=== PATIENT | female | born 1980 | race Caucasian/White ===

== ENCOUNTER 2021-03-21 15:24 | Inpatient (IN) | payer OTHER ==
[~2021-03-21] VITALS: Ht 170.2 cm; Wt 72.7 kg
[2021-03-21 18:07] LABS: BASOPHILS ABSOLUTE AUTO 0.06 K/mm3 (0.00-0.23); BASOPHILS PERCENT AUTO 0 % (0-2); EOSINOPHILS PERCENT AUTO 0 % (0-6); Hematocrit 34.9 % (33.0-51.0); Hemoglobin 11.3 g/dL (11.5-16.0); IMMATURE GRAN ABSOLUTE AUTO 0.16 K/mm3 (0.00-0.10); IMMATURE GRAN PERCENT AUTO 1 % (0-1); LYMPHOCYTES ABSOLUTE AUTO 0.76 K/mm3 (0.84-5.20); LYMPHOCYTES PERCENT AUTO 4 % (21-46); MONOCYTES ABSOLUTE AUTO 1.01 K/mm3 (0.16-1.47); MONOCYTES PERCENT AUTO 5 % (4-13); Mean Corpuscular HGB Conc 32.4 g/dL (31.5-36.5); Mean Corpuscular Volume 84 fL (80-100); Mean Platelet Volume 10.8 fL (9.1-12.4); NEUTROPHILS ABSOLUTE AUTO 19.68 K/mm3 (1.96-9.15); NEUTROPHILS PERCENT AUTO 91 % (41-73); Platelet Count 266 K/mm3 (150-400); RDW Coefficient Variation 12.9 % (11.7-14.2); Red Blood Cell Count 4.18 M/mm3 (3.80-5.20); White Blood Cell Count 21.67 K/mm3 (4.00-11.30)
[2021-03-21 18:26] LABS: Alanine Aminotransfer (ALT/SGP 21 U/L (12-78); Albumin, Blood 2.7 g/dL (3.4-5.0); Albumin/Globulin Ratio 0.6 (0.8-1.8); Alk Phos 181 U/L (50-136); Anion Gap 15 mmol/L (6-16); Aspartate Aminotrans (AST/SGOT 19 U/L (12-37); Blood Urea Nitrogen 6 mg/dL (8-24); Bun/Creatinine Ratio 10.5 (12.0-20.0); CO2, Blood 14 mmol/L (21-32); Calcium, Blood 8.6 mg/dL (8.5-10.1); Chloride, Blood 106 mmol/L (98-108); Creatinine, Blood 0.57 mg/dL (0.40-1.00); Globulin, Blood 4.9 g/dL (2.2-4.0); Glomerular Filtration Rate >60 (60-); Glucose, Blood 97 mg/dL (70-99); Potassium, Blood 3.5 mmol/L (3.5-5.5); Sodium, Blood 135 mmol/L (136-145); Total Protein, Blood 7.6 g/dL (6.4-8.2)
[2021-03-21 21:05] LABS: SARS-Cov-2 (COVID-19) PCR, MMC NEGATIVE (NEGATIVE)
[2021-03-21 22:24] LABS: U Amphetamine Screen Not Detected; U Barbituate Screen Not Detected; U Benzodiazapine Screen Not Detected; U Buprenorphine Screen Not Detected; U Cannabinoids Screen Not Detected; U Cocaine Screen Not Detected; U Methadone Screen Not Detected; U Methamphetamine Screen Not Detected; U Opiates Screen Not Detected; U Oxycodone Screen Not Detected; U Phencyclidine Screen Not Detected; U Propoxyphene Screen Not Detected
--- NOTE | 2021-03-22 12:36 | NUR ---
SPOKE WITH PT ABOUT ANY QUESTIONS OR CONCERNS SHE HAD WHICH WERE NONE AT THIS TIME. SHE REPORTED THAT SHE STOPPED TAKING BC AROUND JULY BECAUSE HER S.O. IS ASEXUAL AND THEY DO NOT HAVE SEX VERY OFTEN. SHE ALSO REPORTED THAT DURING QUARANTINE (THE BEGINNING OF HER ) SHE WAS DRINKING HEAVILY AND HAS DRANK A FEW TIMES THROUGHOUT THE BECAUSE SHE DID NOT KNOW SHE WAS . OFFERED TO TAKE THE BABY TO THE NURSERY SO SHE CAN REST AND SHE DECLINED. SHE SAID SHE WANTED TO KEEP BABY IN THE ROOM SO SHE CAN GET USED TO TAKING CARE OF HIM. SHE REPORTS HER AND HER S.O. ARE CERTAIN THEY WANT TO KEEP THE BABY AND NOT ADOPTION. SHE SAID SHE FEELS THAT THE SHOCK SHE FELT IS STARTING TO CALM DOWN AND THE SITUATION IS "SINKING IN."
[2021-03-23 08:09] LABS: HBSAG SCREEN Negative (Negative)
[2021-03-23] MEDS ORDERED: IBUP800 PO (08:39)
[2021-03-23] MEDS ORDERED: PRENATAL TABLE1 EAC2 PO (08:39)
--- NOTE | 2021-03-23 08:58 | NUR ---
C.O.RGaurang. REFERRAL CALLED TO CHECK IN TO SEE IF PT NEEDED ANYTHING PRIOR TO D/C. PT REPORTS THEIR CONTACT FOR A CARSEAT IS FALLING THROUGH AND THAT SEEMS TO BE THEIR ONLY NEED AT THIS TIME. C.O.R.Brian. INFORMED AND THEY ARE WORKING ON ASSISTING THEM.
--- NOTE | 2021-03-23 19:30 | NUR ---
DISCHARGE MATERIALS GIVEN AND REVIEWED BY PREVIOUS SHIFT RN. PT DENIES ANY FURTHER QUESTIONS OR CONCERNS AT THIS TIME. ID BANDS MATCHED WITH NB AND RN WALKED PT OUT TO VEHICLE.
[2021-03-24 00:10] LABS: HIV SCREEN 4TH GENERATION WRFX Non Reactive (Non Reactive)
== END 2021-03-23 19:48 | disposition home or self-care (01) | DRG 807 ==
LOC: ER 15:24 → BC 18:20
PROVIDERS: Physician Assistant; ADMIT Obstetrics & Gynecology
PROC: 10E0XZZ Delivery of Products of Conception, External Approach (ICD-10-PCS; principal; 2021-03-21)
PROC: 0KQM0ZZ Repair Perineum Muscle, Open Approach (ICD-10-PCS; 2021-03-21)
DX: O43.123 Velamentous insertion of umbilical cord, third trimester (principal); Z37.0 Single live birth; Z3A.37 37 weeks gestation of pregnancy; O70.1 Second degree perineal laceration during delivery; Z20.822 Contact with and (suspected) exposure to COVID-19; Z88.2 Allergy status to sulfonamides
CPT/HCPCS: 36415; 80053; 83690; 84702; 85025; 86592; 86762; 86850; 86900; 86901; 87340; 87389; 99284; A9270; J1885; U0004

== ENCOUNTER → 2021-05-11 | Outpatient (CLI) | payer OTHER ==
[~2021-05-11] MED LIST: IBUP800 PO; PRENATAL TABLE1 EAC2 PO
[2021-05-13 12:11] LABS: CHLAMYDIA TRACHOMATIS, NAA Negative (Negative); HPV 16 Negative (Negative); HPV 18 Negative (Negative); HPV OTHER HR TYPES Negative (Negative)
== END | disposition home or self-care (01) ==
LOC: LAB 13:35 → LAB SHORT 13:35
PROVIDERS: Obstetrics & Gynecology
DX: Z01.419 Encounter for gynecological examination (general) (routine) without abnormal findings (principal); Z11.3 Encounter for screening for infections with a predominantly sexual mode of transmission
CPT/HCPCS: 87491; 87591; 87624; G0123